=== PATIENT | female | born 1990 | race Caucasian/White ===

== ENCOUNTER 2018-11-22 10:53 | Emergency (ER) | payer OTHER ==
[2018-11-22] MEDS ORDERED: TDAP ADULT 0.5 ML INJ (BOOSTRIX) IM ONE (10:59)
[2018-11-22] MEDS ORDERED: CEPHALEXIN 500 MG CAP PO ONE (10:59)
--- NOTE | 2018-11-22 11:03 | EDPHY ---
H & P Smoking Status: Never smoked Time Seen by Provider: 11/22/18 11:02 HPI/ROS: CHIEF COMPLAINT: Right dorsal hand laceration HISTORY OF PRESENT ILLNESS: 27-year-old [id number] female with out-of- date tetanus arrives via ambulance after a laceration/partial degloving to the dorsum of her right dorsal hand after skin was caught in an industrial beer labeling machine with a water-based adhesive. This was an accidental injury. She denies paresthesia. Denies sensory or motor deficits distally. Denies other injury. PRIMARY CARE PROVIDER: Worker's compensation REVIEW OF SYSTEMS: 10 systems reviewed and negative with the exception of the elements mentioned in the history of present illness PAST MEDICAL/SURGICAL HISTORY: no anticoagulant use, tetanus out-of-date. SOCIAL HISTORY: denies alcohol use at time of incident PHYSICAL EXAM 1) GENERAL: Well-developed, well-nourished, alert and oriented. Appears to be in no acute distress. Smiling. Answering questions appropriately. 2) HEAD: Normocephalic, atraumatic 3) HEENT: Pupils equal, round, reactive to light bilaterally. 4) NECK: Posterior cervical spine is nontender, no stepoff, no effusion. Full range of motion which does not elicit any midline cervical spine pain, no posterior midline tenderness, no step-off. 5) LUNGS: Clear to auscultation bilaterally, no wheezes, no rhonchi, no retractions. No obvious signs of trauma. No chest wall pain. No flaring, no grunting. Moving symmetrically. No crepitus. 6) HEART: [Regular rate and rhythm, 7) ABDOMEN: No guarding, no rebound, no focal tenderness, no peritoneal signs, no signs of trauma, no ecchymosis 8) MUSCULOSKELETAL: Right upper extremity: The dorsum of the patient's right hand and she is a partial degloving laceration measuring 5 cm with regular skin edges. There is no extensor deficit distally. The fascial layer covering the extensor tendons is intact. The flap has viable flow. No foreign body or glue visualized or palpated.. 9) BACK: No midline vertebral tenderness, no fluctuance, no step-off, no obvious trauma, no visual or palpable abnormality. 10) SKIN: laceration to the right dorsal hand DIFFERENTIAL DIAGNOSIS: In no particular order including but not limited to laceration, amputation, degloving (Thalia Rice) Constitutional: Initial Vital Signs Temperature (C) 36.4 C 11/22/18 10:59 Heart Rate 69 11/22/18 10:59 Respiratory Rate 18 11/22/18 10:59 Blood Pressure 141/91 H 11/22/18 10:59 O2 Sat (%) 97 11/22/18 10:59 O2 Delivery Mode Room Air Allergies/Adverse Reactions: No Known Allergies Allergy (Unverified 11/22/18 10:59) Home Medications: Medication Instructions Recorded Cephalexin [Keflex] 500 mg PO TID 7 Days cap 11/22/18 oxyCODONE/APAP 5/325 [Percocet 1 tab PO Q6 #7 tab 11/22/18 5/325] MDM/Departure - MDM Imaging Results: Images reviewed myself (Thalia Rice) Procedures: Procedure: Laceration repair. I explained the indications, risks and benefits for both laceration repair and anesthetic administration. Verbal consent was obtained from the patient. The laceration on the right dorsal hand was anesthetized using 0.5% bupivicaine without epinephrine. After anesthetic administered the patient was observed for a period of time and had no apparent adverse effects. The wound was cleaned, prepped, draped in normal sterile fashion and explored to its base. No foreign body seen, no foreign bodies palpated. No tendon injury was identified. The wound was repaired with 4 horizontal mattress 5 0 Ethilon sutures and 1 simple interrupted 5 O Ethilon suture. The wound repair was complex. The procedure was performed by myself. Patient has been informed that scarring will occur, although efforts have been made to minimize this. Procedure: Splint A Velcro volar splint was applied by ER sales technician. After application of the splint I returned and re-examined the patient. The splint was adequately immobilizing the joint and distal to the splint the patient's circulation and sensation were intact. Patient shows no signs of compartment syndrome. Was given orthopedic precautions. (Thalia Rice) Medications Given: Discontinued Medications Cephalexin HCl (Keflex) 500 mg PO EDNOW ONE PRN Reason: Protocol Stop: 11/22/18 11:00 Last Admin: 11/22/18 11:25 Dose: 500 mg Diphtheria/Tetanus/Acell Pertussis (Boostrix) 0.5 ml IM .ONCE ONE Stop: 11/22/18 11:00 Last Admin: 11/22/18 11:25 Dose: 0.5 ml ED Course/Re-evaluation: Patient was re-evaluated with serial exams. I discussed her injury with her. I have reapproximated the skin edges. Patient has been informed that will she will sustain a scar to this area. Due to the partial degloving and crushing nature of this injury, she has been informed that the long-term viability of the tissue is incompletely clear at this time. This is a worker's compensation injury. The importance of close follow-up with both work comp provider and with Hand surgery has been stressed on numerous instances. Sutures worse place to minimize stress on the tissue. She has been started on prophylactic antibiotics has been placed in a splint and been given referral to her both work comp provider and a hand surgeon. Usual and customary wound precautions instructions provided. She feels comfortable being discharged. Care of patient under supervision of secondary supervising physician Dr Andrade with whom I discussed case. (Thalia Rice) I did not see this patient while she was in the emergency department. However her care was discussed with the PA while the patient was in the department. I agree with treatment plan and management (Jian Andrade) - Depart Disposition: Home, Routine, Self-Care Clinical Impression: Laceration of right hand Condition: Good Instructions: Care For Your Stitches (ED), Laceration (ED) Additional Instructions: Return to the ER if you develop redness, swelling, discharge, warmth to the wound, red streaks going up your arm, or any other symptoms that concern you. Prescriptions: Cephalexin [Keflex] 500 mg PO TID 7 Days cap oxyCODONE/APAP 5/325 [Percocet 5/325] 1 tab PO Q6 #7 tab Referrals: Teo Zavaleta MD [Medical Doctor] - 1-2 days without fail
[2018-11-22 12:23] VITALS: BP 131/92
== END 2018-11-22 12:23 | disposition home or self-care (01) ==
PROC: 0HQFXZZ Repair Right Hand Skin, External Approach (ICD-10-PCS; principal; 2018-11-22)
DX: S61.411A Laceration without foreign body of right hand, initial encounter (principal); Z23 Encounter for immunization; W26.8XXA Contact with other sharp object(s), not elsewhere classified, initial encounter; Y99.0 Civilian activity done for income or pay; Y92.9 Unspecified place or not applicable; Y93.9 Activity, unspecified
CPT/HCPCS: L3984